=== PATIENT | male | born 1950 | race African-American/Black ===

== ENCOUNTER 2018-08-29 11:03 | Emergency (ER) | payer MEDICARE, MEDICAID, SELFPAY ==
--- NOTE | 2018-08-29 | DI.RAD.S_ITS ---
PROCEDURE: XR THORACIC SPINE 2V INDICATIONS: BACK PAIN TECHNIQUE: 3 views of the thoracic spine were acquired. COMPARISON: None. FINDINGS: Bones: No fractures or dislocations. No suspicious bony lesions. Partially visualized lower thoracolumbar spinal instrumentation. Diffuse endplate discogenic spurring and sclerosis. Cervical disc degeneration and facet arthropathy also noted. There is lateral curvature of the spine. Soft tissues: No paravertebral stripe thickening. IMPRESSION: No fracture. Extensive thoracolumbar spinal instrumentation and diffuse degenerative disc disease, most advanced at the adjacent unfused segment. Dictated by: Bry Wilcox M.D. on 08/29/2018 at 15:05 Approved by: Bry Wilcox M.D. on 08/29/2018 at 15:07
[2018-08-29 11:09] VITALS: BP 151/84; PULSE 82; RESP 18; TEMP 37.1; O2SAT 98; BMI 28.7
--- NOTE | 2018-08-29 12:42 | PC.NURSE ---
Pt has extensive back pain and surgical history. States he has had 3 back surgeries, with most recent being approx 2 years ago in his lumbosacral spine. He reports a new, radiating pain that starts in the mid to low right sided back and then radiating pain in the right buttocks down to the right leg. The leg is painful to touch. He states he can walk, but it can be painful. Nothing makes the pain better or worse, but he notices it more when he lays down. At times his leg feels like it will give out. He also notes a tender lump in his mid back to the right side of his spine. When the lump is palpated, he feels the shooting pain down his right leg. There is a well-healed surgical scar down the lumbar and sacral spine.
--- NOTE | 2018-08-29 13:31 | DI.RAD.S_ITS ---
PROCEDURE: XR LUMBAR SPINE 2-3V INDICATIONS: back pain, history multiple back surg TECHNIQUE: 2 views of the lumbar spine were acquired. COMPARISON: None. FINDINGS: Bones: Extensive posterior spinal instrumentation from [id number]. Orphaned screw fragment projects in the left ilium otherwise the hardware appears intact no evidence of hardware loosening. Residual grade 1 anterolisthesis of L4 on L5. No acute fracture seen. Decreased study sensitivity due to degenerative changes. Soft tissues: Overlying bowel gas pattern is normal. No suspicious soft tissue calcifications. IMPRESSION: No acute fracture identified. Extensive posterior spinal instrumentation as above. Dictated by: Bry Wilcox M.D. on 08/29/2018 at 15:00 Approved by: Bry Wilcox M.D. on 08/29/2018 at 15:03
--- NOTE | 2018-08-29 13:48 | ED.BACK ---
HPI - Back Pain/Injury <RAVINDRA Iverson - Last Filed: 08/29/18 18:53> General Chief Complaint: Back Pain/Injury Stated Complaint: Back Pain/ had 3 prior surgeries Time Seen by Provider: 08/29/18 13:15 Source: patient and family Mode of arrival: ambulatory Limitations: no limitations History of Present Illness HPI Narrative: patient is a 68-year-old male who presents with chief complaint of back pain. He states he has had 3 prior back surgeries in a titanium rods in his spine. He states that his back has been hurting for a few days the pain radiates down his right leg. He denies any numbness, tingling, weakness, incontinence of bowel or bladder. He is not exactly sure what kind of surgeries he has had. Denies any urinary symptoms including dysuria urgency or frequency. Patient and his state he has had swelling on the right aspect of the top of his surgical incision. he denies any specific trauma. Related Data Previous Rx's Medication Instructions Recorded cyclobenzaprine 10 mg PO TID PRN #30 tab 08/29/18 naproxen 500 mg PO BID PRN #30 tab 08/29/18 Allergies Allergy/AdvReac Type Severity Reaction Status Date / Time No Known Drug Allergies Allergy Verified 08/29/18 11:09 Review of Systems <RAVINDRA Iverson - Last Filed: 08/29/18 18:53> Review of Systems GENERAL: Denies chills, fatigue, malaise, fever, sweats. HEENT: Denies sinus pain, ear pain, sore throat, difficulty swallowing, dizziness. RESPIRATORY: Denies dyspnea, cough, wheezing, hemoptysis, sputum. CARDIOVASCULAR: Denies chest pain, palpitations, orthopnea, edema, GASTROINTESTINAL: Denies nausea, vomiting, abdominal pain, diarrhea, constipation, melena. : Denies dysuria, frequency, incontinence, hematuria, urinary retention. MUSCULOSKELETAL: See HPI SKIN: Denies rash, skin lesions, or other NEUROLOGIC: Denies weakness, headache, numbness, change in speech, confusion, seizures, incoordination. PSYCHIATRIC: No concerning psychosocial issues. 12 point review of systems is negative except for those stated above Exam <RAVINDRA Iverson - Last Filed: 08/29/18 18:53> Narrative Exam Narrative: GENERAL: This is a well-nourished, well-developed patient, Appears uncomfortable HEAD: Atraumatic. Normocephalic. No temporal or scalp tenderness. EYES: Pupils equal round and reactive. Extraocular motions intact. No scleral icterus. No injection or drainage. ENT: Nose without bleeding, purulent drainage or septal hematoma. Throat without erythema, tonsillar hypertrophy or exudate. Uvula midline. Airway patent. NECK: Trachea midline. No JVD or lymphadenopathy. Supple, nontender, no meningeal signs. CARDIOVASCULAR: Regular rate and rhythm without murmurs, gallops, or rubs. RESPIRATORY: Clear to auscultation. Breath sounds equal bilaterally. No wheezes, rales, or rhonchi. GASTROINTESTINAL: Abdomen soft, non-tender, nondistended. No hepato-splenomegaly, or palpable masses. No guarding. EXTREMITIES: No clubbing, cyanosis, or edema. No joint tenderness, effusion, or edema noted. Strength is equal upper and lower extremities bilaterally. BACK: No pain to C-spine palpation. Tenderness over T and L-spine surgical Scar. Pain on palpation of right and left paraspinal muscles. NEURO: AOx3. No slurred speech. Radial and Achilles reflexes intact bilaterally. SKIN: No rash or erythema. Surgical scar noted on back.No rash erythema ecchymosis or wound noted on back. Initial Vital Signs Initial Vital Signs: Vital Signs Temperature 98.7 F 08/29/18 11:09 Pulse Rate 82 08/29/18 11:09 Respiratory Rate 18 08/29/18 11:09 Blood Pressure 151/84 H 08/29/18 11:09 Pulse Oximetry 98 08/29/18 11:09 <Catalina Lowry DO - Last Filed: 08/29/18 19:10> Initial Vital Signs Initial Vital Signs: Vital Signs Temperature 98.7 F 08/29/18 11:09 Pulse Rate 82 08/29/18 11:09 Respiratory Rate 18 08/29/18 11:09 Blood Pressure 151/84 H 08/29/18 11:09 Pulse Oximetry 98 08/29/18 11:09 Course <CHRISTAL Iverson-BC - Last Filed: 08/29/18 18:53> Course Narrative: I checked on the patient several times his stay in the emergency department. The patient stated that his pain was much relieved by the Toradol and Flexeril emergency department. Orders Ordered: ED Orders 08/29/18 13:31 XR lumbar spine 2-3V Stat Discontinued Medications Cyclobenzaprine HCl (Flexeril) 10 mg PO NOW ONE Stop: 08/29/18 13:32 Last Admin: 08/29/18 13:53 Dose: 10 mg Ketorolac Tromethamine (Toradol) 60 mg IM NOW ONE Stop: 08/29/18 13:32 Last Admin: 08/29/18 13:53 Dose: 60 mg Vital Signs - 8 hr 08/29/18 15:40 Pulse Rate 63 Respiratory Rate 18 Blood Pressure 142/84 H Pulse Oximetry 98 <Catalina Lowry DO - Last Filed: 08/29/18 19:10> Orders Ordered: ED Orders 08/29/18 13:31 XR lumbar spine 2-3V Stat Discontinued Medications Cyclobenzaprine HCl (Flexeril) 10 mg PO NOW ONE Stop: 08/29/18 13:32 Last Admin: 08/29/18 13:53 Dose: 10 mg Ketorolac Tromethamine (Toradol) 60 mg IM NOW ONE Stop: 08/29/18 13:32 Last Admin: 08/29/18 13:53 Dose: 60 mg Vital Signs - 8 hr 08/29/18 15:40 Pulse Rate 63 Respiratory Rate 18 Blood Pressure 142/84 H Pulse Oximetry 98 MDM - Back Pain/Injury <RAVINDRA Iverson - Last Filed: 08/29/18 18:53> Imaging Data lumbar xray : Radiologist's impression: [address] [address] XRay Report Signed Patient: Ari Givens CMR#: [id number] : 2Acct:[id number] Age/Sex: 68 / MDate of Service: 08/29/18 Loc: ED Accession Number: [id number] Procedure: XR lumbar spine 2-3V Ordering Provider: Catalina Lopez PROCEDURE: XR LUMBAR SPINE 2-3V INDICATIONS: back pain, history multiple back surg TECHNIQUE: 2 views of the lumbar spine were acquired. COMPARISON: None. FINDINGS: Bones: Extensive posterior spinal instrumentation from [id number]. Orphaned screw fragment projects in the left ilium otherwise the hardware appears intact no evidence of hardware loosening. Residual grade 1 anterolisthesis of L4 on L5. No acute fracture seen. Decreased study sensitivity due to degenerative changes. Soft tissues: Overlying bowel gas pattern is normal. No suspicious soft tissue calcifications. IMPRESSION: No acute fracture identified. Extensive posterior spinal instrumentation as above. Dictated by: Bry Wilcox M.D. on 08/29/2018 at 15:00 Approved by: Bry Wilcox M.D. on 08/29/2018 at 15:03 t spine xray : Radiologist's impression: [place] [address] XRay Report Signed Patient: Ari Givens CMR#: [id number] : 1950cct:[id number] Age/Sex: 68 / MDate of Service: 08/29/18 Loc: ED Accession Number: [id number] Procedure: XR thoracic spine 2V Ordering Provider: Catalina Lopez-GABRIELLE PROCEDURE: XR THORACIC SPINE 2V INDICATIONS: BACK PAIN TECHNIQUE: 3 views of the thoracic spine were acquired. COMPARISON: None. FINDINGS: Bones: No fractures or dislocations. No suspicious bony lesions. Partially visualized lower thoracolumbar spinal instrumentation. Diffuse endplate discogenic spurring and sclerosis. Cervical disc degeneration and facet arthropathy also noted. There is lateral curvature of the spine. Soft tissues: No paravertebral stripe thickening. IMPRESSION: No fracture. Extensive thoracolumbar spinal instrumentation and diffuse degenerative disc disease, most advanced at the adjacent unfused segment. Dictated by: Bry Wilcox M.D. on 08/29/2018 at 15:05 Approved by: Bry Wilcox M.D. on 08/29/2018 at 15:07 [facility] Narrative Medical decision making narrative: Patient presents with chief complaint of musculoskeletal back pain. Images were obtained given his history, but did reveal no acute findings. Patient had good relief from Toradol and Flexeril the emergency department, so I gave him prescriptions of both. Discussed at length return precautions of numbness, incontinence of bowel, incontinence of bladder. patient and had no questions or concerns upon discharge. Discharge Plan Departure Patient Disposition: Home Clinical Impression: Back pain Discharge Date/Time: 08/29/18 15:41 Interventions: ED Discharge Assessment Last Done: 08/29/18 15:40 Instructions: DI for Back Spasm, DI for Thoracic Back Pain Activity Restrictions/Additional Instructions: I am giving you a prescription for Flexeril which is a muscle relaxer. Be aware this can be sedating. Do not combine with other sedating agents or alcohol. You can take this 3 times a day as needed. I have also given you a prescription for naproxen to take twice a day. Please do not combine this with any other NSAIDs. I have given you a list of PCPs accepting new patients In the area. Feel free to give them a call or call your insurance to find a primary care provider in the area. I have given you a list of a few orthopedic and spine people in the area. Prescriptions: New naproxen 500 mg tablet 500 mg PO BID PRN (Reason: pain) Qty: 30 RF: 0 cyclobenzaprine 10 mg tablet 10 mg PO TID PRN (Reason: muscle spasm) Qty: 30 RF: 0 Referrals: [facility] [Outside] [facility] [Outside] [facility] [Outside] <Catalina Lowry DO - Last Filed: 08/29/18 19:10> Cosign ED Attending Cosignature Attestation: I was immediately available in the department for consultation. This documentation has been reviewed and I agree with assessment and plan. Supervised by Catalina Lowry DO
[2018-08-29] MEDS: KETOROLAC 60 MG/2 ML VIAL IM (13:53)
[2018-08-29] MEDS: CYCLOBENZAPRINE 10 MG TABLET PO (13:53)
[2018-08-29 15:40] VITALS: BP 142/84; PULSE 63; RESP 18; O2SAT 98
== END 2018-08-29 15:41 | disposition home or self-care (01) ==
PROVIDERS: Emergency Provider Nurse Practitioner Family
DX: M54.9 Dorsalgia, unspecified (principal)
CPT/HCPCS: 72070; 72100; 96372; 99282; 99283; J1885

== ENCOUNTER → 2018-09-20 14:48 | Outpatient (CLI) | payer MEDICARE, MEDICAID, SELFPAY ==
--- NOTE | 2018-09-20 14:50 | DI.RAD.S_ITS ---
PROCEDURE: XR CHEST 2V INDICATIONS: expiratory rales on right side TECHNIQUE: 2 views of the chest were acquired. COMPARISON: None. FINDINGS: Surgical changes and devices: Lower thoracic and lumbar spine fusion. Surgical anchors are noted in the right humeral head. Lungs and pleura: No pleural effusions or pneumothorax. Lungs are clear. Mediastinum: Mediastinal contours are normal. Heart size is normal. Bones and chest wall: No suspicious bony abnormalities. Soft tissues appear unremarkable. IMPRESSION: No acute cardiopulmonary disease. Dictated by: Jose Salgado M.D. on 09/20/2018 at 16:25 Approved by: Jose Salgado M.D. on 09/20/2018 at 16:25
== END ==
PROVIDERS: Visit Provider Physician Assistant
DX: R05 Cough (principal); R09.89 Other specified symptoms and signs involving the circulatory and respiratory systems
CPT/HCPCS: 71046

== ENCOUNTER → 2018-12-24 07:50 | Outpatient (CLI) | payer MEDICARE, MEDICAID, SELFPAY ==
--- NOTE | 2018-12-24 | DI.MRI.S_ITS ---
PROCEDURE: MR KNEE RT WO CON INDICATIONS: RIGHT KNEE PAIN TECHNIQUE: Todd[employer]Nephew Visionaire protocol was performed. Noncontrast sagittal PD fast spin echo and T2 fast spin echo with fat saturation, sagittal 3-D FLASH with fat saturation; coronal T1 spin echo and PD fast spin echo with fat saturation, and axial PD fast spin echo with fat saturation through the knee. COMPARISON: None. FINDINGS: Image quality: Excellent. Menisci: Medial meniscal posterior horn tear involving the body, poorly defined. There is partial extrusion. There may be some displaced meniscal fragment seen in the medial gutter although this could be correlated with arthroscopic findings as clinically necessary. Undersurface tear involving the body of the lateral meniscus, with minimal partial extrusion, for example image 19 series 10 Cruciate ligaments: The anterior cruciate ligament is not well visualized and there is heterogeneous intrasubstance signal which could reflect age indeterminate high-grade partial rupture versus advanced mucoid degeneration. There is also similar signal changes involving the PCL. Intraosseous ganglion cyst formation at the roof of the intercondylar notch and tibial eminence suggests mucoid degeneration Medial structures: The medial collateral ligament appears thickened suggesting low-grade sprain although technically age indeterminate. Mild insertional semimembranosus tendinopathy. Visualized portions of the pes anserinus tendons appear normal. No abnormal bursal fluid. Lateral structures: The lateral collateral ligament is thickened with intrasubstance signal change in keeping with age indeterminate sprain. The long and short heads of the biceps femoris tendon appear intact. The popliteus tendon appears normal; the popliteofibular ligament appears intact. The posterosuperior and anteroinferior popliteomeniscal fascicles appear intact. The arcuate and fabellofibular ligaments appear intact, on either side of the lateral inferior geniculate artery. Iliotibial band appears normal. Anterior structures: The quadriceps and patellar tendons appear intact. Patellar alignment is normal. No femoral trochlear dysplasia or ventral trochlear prominence. No edema in the infrapatellar fat pad. Bones and cartilage: No focal marrow contusion or discrete low signal fracture line. Within the medial compartment, diffuse partial thickness loss of the femoral and tibial articular cartilage. Within the lateral compartment, near full-thickness fissuring of the central weightbearing femoral articular cartilage. Within the patellofemoral compartment, diffuse partial thickness loss of the patellar articular cartilage with areas of full-thickness denudation overlying the lateral patellar facet and median patellar ridge. There is partial-thickness articular cartilage loss involving the real aspect of femoral trochlea Joint space: Small Boles's cyst measuring 2 - 3 cm in a cephalocaudad dimension. No definite intra-articular loose bodies identified. Large joint effusion IMPRESSION: Medial meniscal tear involving the posterior horn and body with partial extrusion as discussed above. Lateral meniscal undersurface tear involving the body. Prominent signal changes involving the ACL and PCL, suggestive of advanced mucoid degeneration although age indeterminate partial rupture cannot be excluded. Please correlate clinically to exam findings. Low-grade chronic appearing sprain of the medial collateral ligament. Age indeterminate sprain of the proximal lateral collateral ligament. Tricompartment degeneration as above. Small Boles's cyst. Large joint effusion Dictated by: Bry Wilcox M.D. on 12/24/2018 at 9:22 Approved by: Bry Wilcox M.D. on 12/24/2018 at 9:36
== END ==
PROVIDERS: PCP Family Medicine; Visit Provider Orthopaedic Surgery
DX: M25.561 Pain in right knee (principal); S83.241A Other tear of medial meniscus, current injury, right knee, initial encounter; S83.281A Other tear of lateral meniscus, current injury, right knee, initial encounter; S83.421A Sprain of lateral collateral ligament of right knee, initial encounter; M17.11 Unilateral primary osteoarthritis, right knee; M71.21 Synovial cyst of popliteal space [Baker], right knee; M25.461 Effusion, right knee
CPT/HCPCS: 73721

== ENCOUNTER → 2019-01-20 13:45 | Outpatient (CLI) | payer MEDICARE, MEDICAID, SELFPAY ==
[2019-01-20 14:51] LABS: Hematocrit 46.2 % (41-53); Hemoglobin 15.4 g/dL (13.5-17.5); Mean Corpuscular HGB Conc 33.3 % (30-36); Mean Corpuscular Volume 102.2 fL (80-100); Platelet Count 192 X10^3/uL (150-400); Red Blood Cell Count 4.53 X10^6/uL (4.5-5.9); Red Cell Distribution Width 13.4 % (11.6-14.8); White Blood Cell Count 8.1 X10^3/uL (4.5-11.0)
[2019-01-20 15:13] LABS: Neutrophils Absolute Manual 3078 /uL (3000-5900); Total Cells Counted 100
[2019-01-20 15:22] LABS: Macrocytosis 2+
[2019-01-20 15:37] LABS: Alanine Aminotransferase 67 IU/L (21-72); Albumin 4.5 g/dL (3.5-5.0); Albumin Globulin Ratio 1.5 (1.0-2.8); Alkaline Phosphatase 100 U/L (38-126); Aspartate Aminotransferase 42 IU/L (17-59); BUN Creatinine Ratio 14.5 (6-22); Bilirubin Total 0.5 mg/dL (0.2-1.3); Blood Urea Nitrogen 16 mg/dL (9-20); Calcium 8.9 mg/dL (8.4-10.2); Carbon Dioxide 28 mmol/L (22-32); Chloride 98 mmol/L (98-107); Cholesterol 193 mg/dL (140-199); Estimated Glomerular Filt Rate > 60.0 mL/min (>60); Glucose 128 mg/dL (80-110); HDL Cholesterol 70 mg/dL (40-60); HEMOLYSIS < 15 (0-50); LDL Cholesterol Calculated 93 mg/dL (<100); Potassium 4.3 mmol/L (3.4-5.1); Sodium 139 mmol/L (137-145); Total Protein 7.5 g/dL (6.3-8.2); Triglycerides 150 mg/dL (35-150)
[2019-01-20 16:09] LABS: Thyroid Stimulating Hormone 1.61 uIU/mL (0.47-4.68)
[2019-01-20 16:17] LABS: Appearance Urine UA CLEAR; Bilirubin Urine UA NEGATIVE (NEGATIVE); Color Urine UA YELLOW; Glucose Urine UA TRACE g/dL (Negative); Ketones Urine UA NEGATIVE (NEGATIVE); Leukocyte Esterase Urine UA NEGATIVE (NEGATIVE); Nitrite Urine UA NEGATIVE (Negative); Occult Blood Urine UA NEGATIVE (Negative); Protein Urine UA NEGATIVE (Negative); Specific Gravity Urine UA 1.015 (1.000-1.035); Urobilinogen Urine UA 0.2 E.U./dL (0.2)
== END ==
PROVIDERS: PCP Family Medicine; Visit Provider Family Medicine
DX: I10 Essential (primary) hypertension (principal); N40.0 Benign prostatic hyperplasia without lower urinary tract symptoms; M17.0 Bilateral primary osteoarthritis of knee; Z51.81 Encounter for therapeutic drug level monitoring; Z13.220 Encounter for screening for lipoid disorders; Z13.29 Encounter for screening for other suspected endocrine disorder
CPT/HCPCS: 36415; 80053; 80061; 81003; 84443; 85025; G0103

== ENCOUNTER → 2019-01-27 15:35 | Outpatient (CLI) | payer MEDICARE, MEDICAID, SELFPAY | PROVIDERS: PCP Family Medicine; Visit Provider Orthopaedic Surgery | DX: Z01.818 Encounter for other preprocedural examination (principal) | CPT/HCPCS: 93005 ==

== ENCOUNTER 2019-03-17 12:27 | Inpatient (IN) | payer MEDICARE, MEDICAID, SELFPAY ==
[2019-01-26 13:41] VITALS: BMI 30.8
[2019-03-16] VITALS (14 sets, daily range): BP systolic 102–164; BP diastolic 75–103; PULSE 73–88; RESP 10–20; TEMP 36.5–37.2; O2SAT 92–100; BMI 31.3
--- NOTE | 2019-03-16 06:00 | DI.RAD.S_ITS ---
PROCEDURE: XR KNEE RT 1TO2V INDICATIONS: post-operative total right knee TECHNIQUE: 2 view(s) of the knee acquired. COMPARISON: None. FINDINGS: Bones: Patient is status post knee joint arthroplasty. Hardware components are in expected positions. Visualized bony structures are intact. Soft tissues: Overlying postoperative changes are noted. IMPRESSION: Expected postoperative appearance Dictated by: Bry Wilcox M.D. on 03/16/2019 at 17:33 Approved by: Bry Wilcox M.D. on 03/16/2019 at 17:33
[2019-03-16] MEDS: ACETAMINOPHEN 325 MG TABLET 975 MG PO ×3 (11:23→22:07)
[2019-03-16] MEDS: CELECOXIB 200 MG CAPSULE PO (11:24)
[2019-03-16] MEDS: PREGABALIN 75 MG CAPSULE PO (11:24)
[2019-03-16] MEDS: LACTATED RINGERS 1,000 ML 42 ML IV (12:00)
--- NOTE | 2019-03-16 14:08 | PM.PREOP ---
Pre-operative Note Interval Note History & Physical reviewed/Exam performed by Physician: Yes Changes to H&P: No
--- NOTE | 2019-03-16 14:08 | PM.OP.1 ---
Operative Date/Time/Diagnoses Date of procedure: 03/16/19 Time of procedure: 16:48 Pre-op diagnosis: Right knee osteoarthritis Post-op diagnosis: same Procedure & Clinicians Procedure: Right total knee arthroplasty Same procedure as scheduled: Yes Indications: The patient presents today for total knee arthroplasty after failure of conservative treatment. The nature of the procedure including the risks and benefits, alternatives, postoperative course and expected outcome were discussed and all questions answered. Consent was obtained. Operative site confirmed and marked. Surgeon: Edi Leo Data Governance Consultant: Rakesh Mai Anesthesia Type: General, Spinal and Local Operative Notes Findings: Once all the cuts were made the knee had slight looseness laterally in extension and moderate looseness medially in flexion. The femoral guide appeared to be lined up perfectly with Whitesides line for the cut. The tibia was checked and was perpendicular to the shaft. The knee was otherwise well balanced with excellent patellar tracking. The knee moved smoothly through range of motion from 0-135 degrees. Closure Type: primary Specimen(s): none sent Prosthetic devices, grafts, tissues, transplants, or devices: Todd and Nephew Khanh BCS: 5 femoral component, 6 tibial component, 9 mm BCS polyethylene tray and 35 x 9 mm round patella Applied: implant(s) Blood products transfused: none Tourniquet time (min): 30 Procedure in detail: The patient was taken to the operative suite and placed under general and spinal anesthesia. The patient was given prophylactic antibiotics prior to surgery. The patient was also given tranexamic acid, 1 g, just prior to surgery for postoperative hemostasis. The lateral knee was prepped and the joint injected with 20 mL of 1% Lidocaine with epinephrine. The knee was then prepped and draped in usual sterile fashion. The leg was exsanguinated with an Esmarch dressing and the tourniquet raised to 250 torr. A 15 cm anterior incision was made. Next a medial trivector arthrotomy was made. The extensor mechanism was marked to ensure accurate repair. Initial exposing dissection was carried out medially and laterally. The knee was then extended and the patellar thickness was measured and a cut made removing approximately 9 mm of bone with a goal of restoring normal patellar thickness. The patella was then sized and drilled. Some excess lateral bone was excised and the patellofemoral ligament released. The tourniquet was then released. The knee was then flexed and the Todd [employer] Nephew Visionaire femoral guide was placed. The anterior pins were placed and the distal rotation holes drilled. The distal cutting guide was placed and the templated distal femoral cut was made. The templating cutting block was then placed and the anterior, posterior and chamfer cuts made. The [employer] Visionaire tibial guide was placed and the alignment checked along the axis of the proximal tibial with a richie. The proximal tibial cut was then made with an oscillating saw. All meniscus and bony debris was then removed. Flexion extension gaps were checked. As noted in the findings above the knee was slightly loose laterally in extension and moderately loose medially in flexion. All cuts appeared appropriate. The knee otherwise appeared well balanced and I did not feel this could be corrected with soft tissue releases. The soft tissues were then injected with a combination of 20 mL of half percent Marcaine with epinephrine and 20 mL of Exparel. The trial components were then placed. The knee went into full extension and flexion beyond 120?. There was acceptable medial- lateral balance throughout motion as noted above. Patellar tracking was excellent. The trial components were removed and size is confirmed for the final implants. The knee was then exsanguinated with an Esmarch dressing and the tourniquet reapplied for cementing. The knee was cleansed with Pulsavac irrigation and dried. The final components were cemented in with high viscosity vacuum mixed bone cement with antibiotics. The knee was held in extension and the patellar clamp until the cement had adequately cured. The knee was then irrigated with dilute Betadine solution. The extensor mechanism was closed with 5 interrupted #1 Vicryl sutures in 90 degrees of flexion. The joint was then injected with a combination of 1 g of tranexamic acid and 20 mL of quarter percent Marcaine with epinephrine. The subcutaneous tissue was closed with 2-0 Vicryl. The skin was closed with seth and surgical adhesive. An Aquacel dressing and Wolfgang wrap were then applied. Complications: none Condition: stable Disposition: PACU Plan for aftercare: [facility] protocol for total knee arthroplasty.
[2019-03-16] MEDS: CEFAZOLIN 2 GM/100 ML FROZ.PIGGY IV (15:07)
--- NOTE | 2019-03-16 15:40 | SUR.OPER ---
Supine on padded OR bed. Pillow under head, arms secured on padded armboards <90 degree abduction. Safety belt across torso. Non-operative leg secured with tape over blanket over lower leg. Operative leg secured in DeMayo/Eric positioner. Foam padded brace at thigh of operative leg.
[2019-03-16] MEDS: TRANEXAMIC ACID 1,000 MG VIAL 1000 MG INJ (15:46)
[2019-03-16] MEDS: BUPIVACAINE 0.25% W/ EPI 30 ML VIAL 60 ML INJ (15:46)
[2019-03-16] MEDS: BUPIVACAINE LIPOSOME 266 MG/20 ML VIAL INJ (15:47)
[2019-03-16] MEDS: LIDOCAINE 1% W/EPI INJ 20 ML INJ (15:47)
[2019-03-16] MEDS: SODIUM CHLORIDE 0.9% 100 ML INJ (15:48)
[2019-03-16] MEDS: POVIDONE-IODINE 15 ML, SODIUM CHLORIDE 0.9% 250 ML TOP (15:49)
[2019-03-16] MEDS: HYDROMORPHONE 2 MG INJ 1 MG IM ×4 (17:08→17:53)
[2019-03-16] MEDS: hydrOXYzine 50 MG/ML INJ 25 MG IM (17:11)
[2019-03-16] MEDS: LORazepam 2 MG/ML INJ 0.5 MG IV (17:18)
--- NOTE | 2019-03-16 17:29 | SUR.PHASEI ---
Assumed care. VS stable. Pt reporting 10/10 pain in Rt knee
[2019-03-16] MEDS: OXYCODONE IR 5 MG TABLET 15 MG PO (17:42)
--- NOTE | 2019-03-16 17:45 | SUR.PHASEI ---
Pt reported dull sensation to RLE, Normal sensation to LLE.
--- NOTE | 2019-03-16 18:12 | SUR.PHASEI ---
Report called to Cheryl
--- NOTE | 2019-03-16 18:34 | SUR.PHASEI ---
Pt transferred to the floor with black bag and belongings bag. IV saline locked. VS stable. Drsg CDI. Pt able to wiggle toes. Report to Page.
[2019-03-16] MEDS: LACTATED RINGERS 1,000 ML 125 ML IV (18:58)
[2019-03-16] MEDS: OXYCODONE IR 10 MG TABLET PO (20:10)
[2019-03-16] MEDS: HYDROMORPHONE 2 MG TABLET PO ×2 (20:11→23:00)
[2019-03-16] MEDS: ATORVASTATIN 20 MG TABLET PO (20:12)
[2019-03-16] MEDS: ASPIRIN EC 81 MG TABLET PO (20:12)
[2019-03-17] VITALS (7 sets, daily range): BP systolic 136–151; BP diastolic 63–95; PULSE 81–93; RESP 16–18; TEMP 36.5–37.2; O2SAT 93–99
[2019-03-17] MEDS: CEFAZOLIN 2 GM/100 ML FROZ.PIGGY IV ×2 (00:05→06:24)
[2019-03-17] MEDS: HYDROMORPHONE 0.5 MG INJ IV ×3 (00:06→06:24)
--- NOTE | 2019-03-17 00:42 | PC.NURSE ---
Addendum entered by Cheryl Bowles R.N. 03/17/19 00:57: Dr. Guerrero left telemetry order on for this pt. This junior copywriter did not have a chance to call Dr. Avitia to get tele DC'd. Handed off this task to oncoming nurse. Original Note: 1829- Pt arrived to room 212 from PACU via bed. A/O x4, , Maggy with pt. 100%RA, LS clear denies SOB. Right knee aquacell/maria elena wrap CDI, PP+, CMS+, wiggle toes and ankle pumps ++. Pt requesting something to eat, went to cafeteria, brought up dinner, pt tolerated well. Pt reports pain 9-10/10, and reports baseline pain 7/10 at home from chronic pain to back and knee. Pt requested trazadone 100mg for sleep, called Dr. Avitia, answered NO for that order. Using urinal in bed. Pt declines to wear calf SCD's. Bed alarm on, rooming in, call light in reach.
[2019-03-17] MEDS: hydrOXYzine pamoate 25 MG CAPSULE PO ×2 (01:07→12:19)
[2019-03-17] MEDS: LACTATED RINGERS 1,000 ML 125 ML IV (02:15)
[2019-03-17] MEDS: HYDROMORPHONE 2 MG TABLET PO ×2 (02:15→05:28)
[2019-03-17 06:16] LABS: Hematocrit 40.2 % (41-53); Hemoglobin 13.7 g/dL (13.5-17.5)
--- NOTE | 2019-03-17 08:02 | PM.PNPO.1 ---
Subjective Date Patient Seen: 03/17/19 Time Patient Seen: 08:02 Interval history: The patient is seen bedside postop day #1 status post right total knee arthroplasty by Dr. Leo. Patient has been having significant pain overnight. He normally takes MS Contin 30 mg daily with 20 mg of oxycodone 3 times a day. This is standard maintenance dose for his chronic pain. His pain currently is 10/10. He is also having significant back pain. He denies chest pain shortness of breath nausea vomiting and calf pain. Exam Vital Signs (past 8 hours): - 03/17/19 06:01 03/17/19 09:00 03/17/19 09:10 Temperature 97.9 F 97.7 F Pulse Rate 89 81 Respiratory Rate 16 16 Blood Pressure 136/81 151/95 H 136/81 Pulse Oximetry 93 99 03/17/19 09:11 Temperature Pulse Rate Respiratory Rate Blood Pressure 136/81 Pulse Oximetry Oxygen Delivery Method Room Air Oxygen Flow Rate 0 Narrative Exam Narrative: Well-developed, well-nourished, no acute distress. Alert and oriented to person, place, and time. Dressing on operative knee is clean, dry, and intact with no signs of drainage. Minimal erythema and generalized swelling around the surgical site. Neurovascularly intact in operative extremity with a soft and compressible calf. Range of motion of the operative ankle intact. Objective Labs Result Diagrams: 03/17/19 05:30 Labs: Laboratory Results - last 24 hr 03/17/19 05:30 Hgb 13.7 Hct 40.2 L Assessment & Plan Post-op Postoperative Procedures Operation Date: 02/09/19 07:45 <No data on this case meets the specified criteria> Operation Date: 03/16/19 13:00 Actual Procedures Side Surgeon p Total Knee Arthroplasty Right Edi Leo MD 1. Postop day 1 status post above procedure-ambulate with physical therapy, aspirin for DVT prophylaxis. 2. Chronic pain-patient will be placed on his scheduled maintenance chronic pain medications. In addition, he will need breakthrough pain medication to treat his acute surgical pain. So his Dilaudid doses will be in addition to his scheduled pain medications. Dispo-based on how well he ambulates as well as pain control. He may take a few days to become well controlled on a pain regiment. Quality VTE Deep Vein Thrombosis/Pulmonary Embolism Present on Admission: No
[2019-03-17] MEDS: ACETAMINOPHEN 325 MG TABLET 975 MG PO ×3 (09:09→20:48)
[2019-03-17] MEDS: OXYCODONE IR 10 MG TABLET 20 MG PO ×2 (09:09→14:50)
[2019-03-17] MEDS: MORPHINE ER 30 MG TABLET PO (09:10)
[2019-03-17] MEDS: ASPIRIN EC 81 MG TABLET PO ×2 (09:10→20:48)
[2019-03-17] MEDS: MELOXICAM 7.5 MG TABLET 15 MG PO (09:10)
[2019-03-17] MEDS: DOXAZOSIN 4 MG TABLET 8 MG PO (09:10)
[2019-03-17] MEDS: METOPROLOL ER 50 MG TABLET 100 MG PO (09:11)
[2019-03-17] MEDS: AMLODIPINE 5 MG TABLET PO (09:11)
[2019-03-17] MEDS: FINASTERIDE 5 MG TABLET PO (09:11)
[2019-03-17] MEDS: HYDROMORPHONE 2 MG TABLET 4 MG PO ×5 (09:16→20:47)
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
--- NOTE | 2019-03-17 14:34 | PC.NURSE ---
Ari Givens is a 68 year old mail with a Hx of chronic pain and prescribed intermediate frame tender narcotic use. Ari is day 2 post-op from a total Right Knee arthoroplasty. Patient states that his pain is not being well controlled and he is getting no sleep. Ari expressed that he thought this hospital visit would allow him to have a break from his pain via IV pain medication and is upset that he is not getting his pain under control during this stay. Alternative pain interventions were offered and implemented (new bed) but patient would only allow movement after a pain medication administration had occurred recently. New pain medication regime was ordered by and implemented. Will continue to monitor.
--- NOTE | 2019-03-17 14:35 | PT.IPTN ---
Current Diagnoses Unilateral primary osteoarthritis, right knee (03/16/19) Surgery Performed Operation Date: 02/09/19 07:45 <No data on this case meets the specified criteria> Operation Date: 03/16/19 13:00 Actual Procedures p Total Knee Arthroplasty(Right) - Edi Leo MD Physical Therapy Treatment Note M2 PT-IP Current Condition Start: 03/17/19 11:53 Freq: NEEDED Status: Active Protocol: Document 03/17/19 11:41 DLM (Rec: 03/17/19 12:04 DLM [id number]) Physical Therapy Current Condition Current Condition Evaluation Date 03/17/19 Treatment Diagnosis right TKA, impaired gait Onset Date 03/16/19 Weight Bearing Status Weight Bearing Status Weight Bear as Tolerated M3 PT-IP Subjective Start: 03/17/19 11:53 Freq: NEEDED Status: Active Protocol: Document 03/17/19 14:35 GGD (Rec: 03/17/19 14:54 GGD [id number]) Subjective Physical Therapy Visit Type Notes attempted to get up out of bed , when pt lift leg began to bleed. RN and BODY FORMER in room. Will see pt in AM. Outpatient PT
--- NOTE | 2019-03-17 14:36 | PC.NURSE ---
Pt attempted to get up with P.T. and Staff assistance and right knee dressing began bleeding profusely-applied direct pressure with 4x4's, applied abd pads and covered abd's with maria elena wrap to provide pressure to control bleeding. [facility] contacted and discussed Pt status with Sheryl ISABEL. Awaiting return call for who will be seeing Pt from their office and evaluating bleeding.
[2019-03-17] MEDS: hydrOXYzine pamoate 25 MG CAPSULE 50 MG PO ×2 (18:15→22:09)
--- NOTE | 2019-03-17 19:04 | PC.NURSE ---
Addendum entered by Harmony Javed R.N. 03/17/19 22:37: 4 x 4's and abd pads placed by PA remain dry and intact without any further bleeding to right knee. Wolfgang wrap loosened per pt's request. Lengthwise pillow to support RLE. Medicated as per emar without any complaints by patient. Brighter affect this evening shift. Spouse rooming in. Addendum entered by Harmony Javed R.N. 03/17/19 20:05: Pt is able to stand with assistance to transfer into recliner for bed change to [place]. Pt is content with new bed and verbalizes this. No further bleeding right knee. Wolfgang wrap as per CHALO Sanford remains dry and intact. Equally warm and perfused extremities. Refuses to wear scd's. Original Note: CHALO Sanford in to see patient early in evening shift. Discusses pain management with pt, this telegraphic typewriter mechanic and pt's spouse. Agreement reached to increase dose of vistaril and frequency and continue with every 3 hours dilaudid po. Pt verbalizes frustration over not having option of iv dilaudid. Explanation by CHALO Sanford as to moving towards discharge with po meds and ceiling has been reached with narcotic orders per PA. Dressing removed by PA to right knee and new pressure dressing applied with wolfgang wrap. Pt medicated with po dilaudid and vistaril as ordered. Pain level at time of medication 12/10 and decreases to 8/10. Pt now more patient and willing to interact with staff as to plan of care. Encouraged pt to transfer to [place] bed and allow for linen change as current linen is bloodied.
[2019-03-17] MEDS: ATORVASTATIN 20 MG TABLET PO (20:49)
[2019-03-17] MEDS: SODIUM CHLORIDE 0.9% FLUSH 10 ML IV (20:49)
[2019-03-17] MEDS: TRAZODONE 100 MG TABLET PO (22:08)
[2019-03-18] VITALS (12 sets, daily range): BP systolic 109–151; BP diastolic 61–89; PULSE 78–91; RESP 16–18; TEMP 36.6–38.3; O2SAT 93–99
[2019-03-18] MEDS: HYDROMORPHONE 2 MG TABLET 4 MG PO ×7 (00:05→23:50)
[2019-03-18] MEDS: OXYCODONE IR 10 MG TABLET 20 MG PO ×3 (01:07→17:39)
[2019-03-18] MEDS: hydrOXYzine pamoate 25 MG CAPSULE 50 MG PO ×5 (01:07→20:18)
--- NOTE | 2019-03-18 07:25 | PC.NURSE ---
03/18 Called into patient's room by Lab. Patient is feeling warm to the touch. Checked Patient's Temp with oral thermometer. Patient's Temp is 101.0. Took Patient's blankets off of him and Reported Temp to Opal Kaufman RN
[2019-03-18 07:30] LABS: Hematocrit 36.5 % (41-53); Hemoglobin 12.7 g/dL (13.5-17.5)
[2019-03-18] MEDS: MELOXICAM 7.5 MG TABLET 15 MG PO (08:20)
[2019-03-18] MEDS: ACETAMINOPHEN 325 MG TABLET 975 MG PO ×3 (08:21→20:17)
[2019-03-18] MEDS: AMLODIPINE 5 MG TABLET PO (08:21)
[2019-03-18] MEDS: DOXAZOSIN 4 MG TABLET 8 MG PO (08:21)
[2019-03-18] MEDS: ASPIRIN EC 81 MG TABLET PO ×2 (08:21→20:18)
[2019-03-18] MEDS: FINASTERIDE 5 MG TABLET PO (08:22)
[2019-03-18] MEDS: METOPROLOL ER 50 MG TABLET 100 MG PO (08:23)
[2019-03-18] MEDS: MORPHINE ER 30 MG TABLET PO (08:23)
[2019-03-18] MEDS: SODIUM CHLORIDE 0.9% FLUSH 10 ML IV (08:23)
--- NOTE | 2019-03-18 08:24 | PM.PNPO.1 ---
Subjective Date Patient Seen: 03/18/19 Interval history: Patient is seen bedside status post right TKA postop day 2. Patient had some issues with bleeding yesterday afternoon. Appears that he had a hematoma that expressed itself through the most distal aspect of his incision. Pressure dressing was applied by CHALO Carvajal yesterday and is clean dry and intact. He denies chest pain shortness of breath. He did have a mild temperature of 101? F this morning which we will monitor. However it is likely secondary to inflammation from the surgery. Pain regimen appears to be working at this time. However, he is complaining of significant muscle spasms. Exam Vital Signs (past 8 hours): - 03/18/19 02:50 03/18/19 06:30 03/18/19 07:23 Temperature 99.8 F H 99.8 F H 101.0 F H Oxygen Delivery Method Room Air Oxygen Flow Rate 0 Narrative Exam Narrative: Well-developed, well-nourished, no acute distress. Alert and oriented to person, place, and time. Pressure dressing on knee is clean dry and intact with no signs of drainage. Minimal erythema and generalized swelling around the surgical site. Neurovascularly intact in operative extremity with a soft and compressible calf. Range of motion of the operative ankle intact. Objective Labs Result Diagrams: 03/18/19 07:07 Labs: Laboratory Results - last 24 hr 03/18/19 07:07 Hgb 12.7 L Hct 36.5 L Assessment & Plan Post-op Postoperative Procedures Operation Date: 02/09/19 07:45 <No data on this case meets the specified criteria> Operation Date: 03/16/19 13:00 Actual Procedures Side Surgeon p Total Knee Arthroplasty Right Edi Leo MD 1. Postop day 2 status post above procedure--continue with current pain regimen, however will add Flexeril as needed if the Vistaril is not helping with his muscle spasms. We will keep the pressure dressing in place until tomorrow when I will change it. Patient will be up with therapy today. Continue ASA b.i.d. for VTE prophylaxis Dispo-in the next day or 2 based on pain control and movement with physical therapy. Quality VTE Deep Vein Thrombosis/Pulmonary Embolism Present on Admission: No
--- NOTE | 2019-03-18 13:25 | PT.IPTN ---
Current Diagnoses Unilateral primary osteoarthritis, right knee (03/16/19) Surgery Performed Operation Date: 02/09/19 07:45 <No data on this case meets the specified criteria> Operation Date: 03/16/19 13:00 Actual Procedures p Total Knee Arthroplasty(Right) - Edi Leo MD Physical Therapy Treatment Note M2 PT-IP Current Condition Start: 03/17/19 11:53 Freq: NEEDED Status: Active Protocol: Document 03/17/19 11:41 DLM (Rec: 03/17/19 12:04 DLM [id number]) Physical Therapy Current Condition Current Condition Evaluation Date 03/17/19 Treatment Diagnosis right TKA, impaired gait Onset Date 03/16/19 Weight Bearing Status Weight Bearing Status Weight Bear as Tolerated M3 PT-IP Subjective Start: 03/17/19 11:53 Freq: NEEDED Status: Active Protocol: Document 03/18/19 09:25 LJ (Rec: 03/18/19 13:25 LJ [id number]) Subjective Physical Therapy Visit Type Type Treatment Note Visit Start Time 09:25 Visit Stop Time 09:48 Total Visit Minutes 23 Physical Therapy Visit Comments Patient Comments Still in a lot of pain but knows he has to get up and move. Fears his pain will increase after movement. Therapy Pain Assessment Pain When Pain Assessed During Mobility Pain Present Pain Present Pain Reported Location Right Knee Pain Behaviors Facial Grimacing Guarding Moaning Wincing Pain Management Techniques Apply Cold Re-positioning M4 PT-IP Mobility and Gait Start: 03/17/19 11:53 Freq: NEEDED Status: Active Protocol: Document 03/18/19 09:25 LJ (Rec: 03/18/19 13:25 LJ [id number]) PT-Bed Mobility Assessment Supine to Sit Supine to Sit Minimal Assistance Sit to Supine Sit to Supine Minimal Assistance Scooting Scooting to Edge of Bed Minimal Assistance Scooting Up and Down in Bed Minimal Assistance PT-Transfer Assessment Sit to and From Stand Sit to and from Stand Contact Guard Assistance Use of Upper Extremities Equipment Transfer Assistive Device Gait Belt Front Wheeled Walker Transfers Transfer Destination Bed Transfer Technique Stand Step Pivot Transfer Ability Level of Assist Contact Guard Assistance Use of Upper Extremities Gait Assessment Gait Gait Assistance Required: Contact Guard Assist Distance (Feet) 15 Able to Maintain Weight Bearing Status Yes During Gait Assistive Devices Assistive Device Gait Belt Front Wheeled Walker Gait Deviations General Gait Pattern Antalgic Decreased Stride Length Decreased Feet Clearance Step-to Gait Factors Limiting Gait Function Factors Limiting Gait Function Decreased Activity Tolerance Decreased Strength Pain Comments Gait Comments pt returned to bed after gait due to fatigue and pain. Able to increase weight on involved leg. Movement is slow and guarded. Pt demonstrates proper leg positioning with sit<>stand. Needed cuing for leaning forward prior to attempting to stand. M5 PT-IP Objective Assessments Start: 03/17/19 11:53 Freq: NEEDED Status: Active Protocol: Document 03/17/19 11:41 DLM (Rec: 03/17/19 13:09 DLM [id number]) Orientation Orientation/Cognition Level of Alertness Alert Orientation Name Age Birthday Month Date Year Day of Week Place Situation Language Function Ability No Deficits Noted Safety Awareness Understands Safety Issues Memory Description No Deficits Noted Gross Range of Motion Upper Extremity ROM Assessment Within Functional Limits Lower Extremity ROM Assessment Right Impaired Impairments knee ext -lacking 20 degrees in supine, tolerating minimal knee flexion due to pain Strength Upper Extremity Strength Assessment Within Functional Limits Lower Extremity Strength Assessment Right Impaired Hip able to do low straight leg raise with increase pain Knee knee flex/ext 2+/5 with pain limiting Ankle active movement without difficulty 5/5 Coordination Assessment Gross Coordination Gross Coordination WNL Sensation Assessment Sensation Gross Sensation Right LE Impaired Left LE Impaired Sensation Description Numbness Comments Sensation Comments baseline numbness laterally bilateral hip/thighs since back surgery, maria elena wrap on knee , hypesensative to touch right knee today Muscle Tone Muscle Tone WNL Yes M6 PT-IP Treatment Start: 03/17/19 11:53 Freq: NEEDED Status: Active Protocol: Document 03/17/19 11:41 DLM (Rec: 03/17/19 13:09 DLM [id number]) Physical Therapy Treatment Exercises Exercises Ankle Pumps Quad Sets Short Arc Quads Passive Knee Extension Hang Education Education Provided Weight Bearing Status Post-Op Packet Safety Other Treatments Other Treatment Performed his is present this visit and questions answered about home equipment M7 PT-IP Assessment and Plan Start: 03/17/19 11:53 Freq: NEEDED Status: Active Protocol: Document 03/18/19 09:25 LJ (Rec: 03/18/19 13:25 LJ [id number]) PT Summary Assessment and Plan Summary Impairments Pain ROM Strength Balance Bed Mobility Transfers Gait Activity Tolerance Assessment Summary Pt ambulated to the couch and back to bed. Shows good posture and safety awareness. Able to return to bed with SBA and Aiyana for lifting RLE into bed. Pt able to reposition in bed using bridging and bed rails.
[2019-03-18] MEDS: CYCLOBENZAPRINE 10 MG TABLET PO ×2 (14:00→21:35)
--- NOTE | 2019-03-18 15:19 | PT.IPTN ---
Current Diagnoses Unilateral primary osteoarthritis, right knee (03/16/19) Surgery Performed Operation Date: 02/09/19 07:45 <No data on this case meets the specified criteria> Operation Date: 03/16/19 13:00 Actual Procedures p Total Knee Arthroplasty(Right) - Edi Leo MD Physical Therapy Treatment Note M2 PT-IP Current Condition Start: 03/17/19 11:53 Freq: NEEDED Status: Active Protocol: Document 03/17/19 11:41 DLM (Rec: 03/17/19 12:04 DLM [id number]) Physical Therapy Current Condition Current Condition Evaluation Date 03/17/19 Treatment Diagnosis right TKA, impaired gait Onset Date 03/16/19 Weight Bearing Status Weight Bearing Status Weight Bear as Tolerated M3 PT-IP Subjective Start: 03/17/19 11:53 Freq: NEEDED Status: Active Protocol: Document 03/18/19 14:45 LJ (Rec: 03/18/19 15:18 LJ [id number]) Subjective Physical Therapy Visit Type Type Treatment Note Visit Start Time 14:45 Visit Stop Time 15:01 Total Visit Minutes 16 Notes Pt willing to get up and walk around the room. Requests to have pain medication when he is finished with PT. Therapy Pain Assessment Pain When Pain Assessed During Mobility Pain Present Pain Present Pain Reported M4 PT-IP Mobility and Gait Start: 03/17/19 11:53 Freq: NEEDED Status: Active Protocol: Document 03/18/19 14:45 LJ (Rec: 03/18/19 15:18 LJ [id number]) PT-Bed Mobility Assessment Supine to Sit Supine to Sit Standby Assistance Sit to Supine Sit to Supine Minimal Assistance Scooting Scooting to Edge of Bed Standby Assistance Scooting Up and Down in Bed Standby Assistance PT-Transfer Assessment Sit to and From Stand Sit to and from Stand Contact Guard Assistance Use of Upper Extremities Equipment Transfer Assistive Device Gait Belt Front Wheeled Walker Transfers Transfer Destination Bed Transfer Technique Stand Step Pivot Transfer Ability Level of Assist Contact Guard Assistance Use of Upper Extremities Comments Mobility Comments Pt improved mobility in bed. SBA for supine>sit and swinging legs off side of bed. Verbal cuing for trunk and foot placement to set up for standing. Pt able to sit>stand CGA and VC. Gait Assessment Gait Gait Assistance Required: Contact Guard Assist Distance (Feet) 25 Assistive Devices Assistive Device Gait Belt Front Wheeled Walker Gait Deviations General Gait Pattern Antalgic Decreased Stride Length Decreased Feet Clearance Step-to Gait Factors Limiting Gait Function Factors Limiting Gait Function Decreased Activity Tolerance Decreased Strength Pain Comments Gait Comments Pt ambulated from right side of bed to couch and back to bed. Stood for several minutes while RN changed the bedding. Pt tolerated standing w/o complaint of increased pain. Returned to bed with Tiffanie for lifting and positioning leg only. All other mobility was done SBA. M5 PT-IP Objective Assessments Start: 03/17/19 11:53 Freq: NEEDED Status: Active Protocol: Document 03/17/19 11:41 DLM (Rec: 03/17/19 13:09 [facility] [id number]) Orientation Orientation/Cognition Level of Alertness Alert Orientation Name Age Birthday Month Date Year Day of Week Place Situation Language Function Ability No Deficits Noted Safety Awareness Understands Safety Issues Memory Description No Deficits Noted Gross Range of Motion Upper Extremity ROM Assessment Within Functional Limits Lower Extremity ROM Assessment Right Impaired Impairments knee ext -lacking 20 degrees in supine, tolerating minimal knee flexion due to pain Strength Upper Extremity Strength Assessment Within Functional Limits Lower Extremity Strength Assessment Right Impaired Hip able to do low straight leg raise with increase pain Knee knee flex/ext 2+/5 with pain limiting Ankle active movement without difficulty 5/5 Coordination Assessment Gross Coordination Gross Coordination WNL Sensation Assessment Sensation Gross Sensation Right LE Impaired Left LE Impaired Sensation Description Numbness Comments Sensation Comments baseline numbness laterally bilateral hip/thighs since back surgery, maria elena wrap on knee , hypesensative to touch right knee today Muscle Tone Muscle Tone WNL Yes M6 PT-IP Treatment Start: 03/17/19 11:53 Freq: NEEDED Status: Active Protocol: Document 03/17/19 11:41 DLM (Rec: 03/17/19 13:09 [facility] [id number]) Physical Therapy Treatment Exercises Exercises Ankle Pumps Quad Sets Short Arc Quads Passive Knee Extension Hang Education Education Provided Weight Bearing Status Post-Op Packet Safety Other Treatments Other Treatment Performed his is present this visit and questions answered about home equipment M7 PT-IP Assessment and Plan Start: 03/17/19 11:53 Freq: NEEDED Status: Active Protocol: Document 03/18/19 14:45 LJ (Rec: 03/18/19 15:18 LJ [id number]) PT Summary Assessment and Plan Summary Impairments Pain ROM Strength Balance Bed Mobility Transfers Gait Activity Tolerance Assessment Summary Pt able to ambulate greater distance this afternoon with less c/o pain. Gait speed increased as did standing tolerance. Increased ability to perform SBA bed and transfer mobility.
--- NOTE | 2019-03-18 16:51 | PC.NURSE ---
Addendum entered by Harmony Javed R.N. 03/18/19 22:40: Pt continues to lie quietly in bed but rates pain to right knee consistently 9/10. Flexeril to manage spasms. Informed pt bed can be utilized to turn pt side to side. Minimal bed covers as axillary temp 99.8. Held trazadone d/t sedation at this time. Addendum entered by Harmony Javed R.N. 03/18/19 21:38: Pt reports feeling chilled. Oral temp 97.9. Urine is dark kwadwo in color per urinal. Encouraged oral fluids and these were offered. Instructed pt and pt's spouse on the effect of prolonged immobility on the respiratory system. Encouraged frequent use of I.S. and pt compliant. Scd to left LE and ankle waving and calf pumping was encouraged. Pt requires continual education and reinforcement. Medicated for spasms and pain as per emar. Addendum entered by Harmony Javed R.N. 03/18/19 18:43: Now awake as evening meal is brought to pt and pt's spouse. Sleepy, but rousable and follows commands appropriately. Rates right knee pain 9/10, but has difficulty remaining awake to converse with this feature writer. Provided pt with pt's baseline oxycodone and monitoring pt for oversedation. No oversedation noted. Wakeful intermittently in bed. Ice to right knee removed at this time. Admits to baseline numbness to BL LE's and this remains per pt postoperatively. BL LE's equally warm to touch. Calf scd to left leg only and in place. Encouraged I.S. use and pt able to perform to 2500. Slight edema RLE with spotty drainage to aquacel dressing. ABD pads with maria elena wrap to distal aspect RLE dry and intact. Continue to monitor for pain relief and sedation level. Original Note: Pt resting quietly in bed with eyes closed. No signs of distress or discomfort. Allowing for rest. Spouse present in pt's room.
--- NOTE | 2019-03-18 17:03 | CM.IDA ---
Initial DCP Assessment Note: Pt is a 68 yo male, resident of [place] and POD#2 from TKA. PCP: Shannan Cruz Payer: Medicare/Medicaid. According to chart review, pt Indp. w/o AD at baseline and hopeful he can return home w/spouse to assist. Therapy team indicate pt has had a slow recovery course so far, he has complained of a lot of pain, limiting mobility. PA expects pt may remain admitted for an addtl. day or two depending on progress. PT initially recommending SNF but pt making some progress towards home plan today. Following for any DC needs or concerns that might arise. Supportive spouse often at bedside. CARLA Chowdhury Discharge Planning/Care Management CM Discharge Assessment Start: 03/18/19 17:02 Freq: Status: Active Protocol: Document 03/18/19 17:02 YANY (Rec: 03/18/19 17:03 YANY [id number]) Discharge Planning Assessment Assigned Client Business Manager CARLA Carmona DPOA/Assigned Designee Name Danielle Givens, spouse Contact Information [phone] Advance Directives? No History Provided By Patient Significant Other Medical Record Prior Living Arrangements House Household Members spouse Type of transporation used prior to Drives own vehicle admit Independent with ADL's Yes Is patient alert and oriented? Yes Barriers to Discharge No Discharge Plan Home Referrals Initiated None needed Review Status In Process
[2019-03-18] MEDS: ATORVASTATIN 20 MG TABLET PO (20:18)
[2019-03-18] MEDS: TRAZODONE 100 MG TABLET PO (23:53)
[2019-03-19] MEDS: hydrOXYzine pamoate 25 MG CAPSULE 50 MG PO ×5 (00:46→21:53)
[2019-03-19] MEDS: OXYCODONE IR 10 MG TABLET 20 MG PO ×3 (00:46→17:29)
--- NOTE | 2019-03-19 01:45 | PC.NURSE ---
Addendum entered and electronically signed by Ang Bermudez R.N. 03/19/19 06:23: Pt. is in pain 08/11. I stated to him that he asked me not to wake him up for PRN pain meds during the night and he disagreed with me. I told him that I had told him it was best to stay on top of the pain. 4mg PRN Dilaudid given at 0620. Original Note: Addendum entered and electronically signed by Ang Bermudez R.N. 03/19/19 05:51: Pt has been afebrile on this shift. Original Note: Addendum entered and electronically signed by Ang Bermudez R.N. 03/19/19 05:45: Pt asked not to be woken for PRN pain meds. None needed for the night. Original Note: Pt awake and conversing w/ . Pt. is Alert and oriented. Lung sounds are clear, VSS, no fever at this time. Goal is to stay on top of pain w/ PRN pain meds as needed and scheduled medications.
[2019-03-19 05:40] VITALS: BP 122/68; PULSE 82; RESP 18; TEMP 36.7; O2SAT 93
[2019-03-19] MEDS: HYDROMORPHONE 2 MG TABLET 4 MG PO ×5 (06:18→21:52)
[2019-03-19] MEDS: FINASTERIDE 5 MG TABLET PO (08:07)
[2019-03-19] MEDS: DOXAZOSIN 4 MG TABLET 8 MG PO (08:07)
[2019-03-19] MEDS: METOPROLOL ER 50 MG TABLET 100 MG PO (08:07)
[2019-03-19] MEDS: AMLODIPINE 5 MG TABLET PO (08:07)
[2019-03-19] MEDS: MORPHINE ER 30 MG TABLET PO (08:07)
[2019-03-19] MEDS: ASPIRIN EC 81 MG TABLET PO (08:08)
[2019-03-19] MEDS: MELOXICAM 7.5 MG TABLET 15 MG PO (08:08)
[2019-03-19] MEDS: ACETAMINOPHEN 325 MG TABLET 975 MG PO ×3 (08:09→21:53)
--- NOTE | 2019-03-19 08:12 | PM.PNPO.1 ---
Subjective Date Patient Seen: 03/19/19 Interval history: Patient is seen bedside status post right TKA postop day 3. Patient is still rates his pain is severe, however he is resting more comfortably today. Denies calf pain chest pain shortness of breath. He has not had a bowel movement. Exam Vital Signs (past 8 hours): - 03/19/19 05:40 Temperature 98.1 F Pulse Rate 82 Respiratory Rate 18 Blood Pressure 122/68 Pulse Oximetry 93 Oxygen Delivery Method Room Air Oxygen Flow Rate 0 Narrative Exam Narrative: Well-developed well-nourished no acute distress alert oriented x3. Incision on right knee is clean dry and intact and stapled. Small areas of the incision were reinforced with Steri-Strips and an Aquacel dressing was placed. Minimal swelling around the knee. Calf is soft and compressible and has full range of motion of the operative ankle. Objective Labs Result Diagrams: 03/18/19 07:07 Assessment & Plan Post-op Postoperative Procedures Operation Date: 02/09/19 07:45 <No data on this case meets the specified criteria> Operation Date: 03/16/19 13:00 Actual Procedures Side Surgeon p Total Knee Arthroplasty Right Edi Leo MD 1. Postop day 3-continue physical therapy pain control. Discussion was had with the patient regarding discharge and he expressed understanding that he will be discharged tomorrow and will be up to him whether he goes home or to a subacute rehab facility. At this point the patient preferred to go home. Follow up in the office as previously scheduled in his [facility] path book. Quality VTE Deep Vein Thrombosis/Pulmonary Embolism Present on Admission: No
[2019-03-19] MEDS: HYDROMORPHONE 2 MG TABLET PO (08:15)
[2019-03-19] MEDS: DOCUSATE 100 MG CAPSULE PO ×2 (09:26→21:53)
[2019-03-19] MEDS: SENNOSIDES 8.6 MG TABLET 17.2 MG PO (09:26)
--- NOTE | 2019-03-19 11:00 | PT.IPTN ---
Current Diagnoses Unilateral primary osteoarthritis, right knee (03/16/19) Surgery Performed Operation Date: 02/09/19 07:45 <No data on this case meets the specified criteria> Operation Date: 03/16/19 13:00 Actual Procedures p Total Knee Arthroplasty(Right) - Edi Leo MD Physical Therapy Treatment Note M2 PT-IP Current Condition Start: 03/17/19 11:53 Freq: NEEDED Status: Active Protocol: Document 03/17/19 11:41 DLM (Rec: 03/17/19 12:04 DLM [id number]) Physical Therapy Current Condition Current Condition Evaluation Date 03/17/19 Treatment Diagnosis right TKA, impaired gait Onset Date 03/16/19 Weight Bearing Status Weight Bearing Status Weight Bear as Tolerated M3 PT-IP Subjective Start: 03/17/19 11:53 Freq: NEEDED Status: Active Protocol: Document 03/19/19 11:00 [facility] (Rec: 03/19/19 12:39 [facility] [email or web address]) Subjective Physical Therapy Visit Type Type Treatment Note Visit Start Time 11:00 Visit Stop Time 11:20 Total Visit Minutes 20 Number of DISTRICT GAUGER Visits 0 Physical Therapy Visit Comments Patient Comments pt reports he is doing a little better. M4 PT-IP Mobility and Gait Start: 03/17/19 11:53 Freq: NEEDED Status: Active Protocol: Document 03/19/19 11:00 [facility] (Rec: 03/19/19 12:39 [facility] [id number]) PT-Bed Mobility Assessment Supine to Sit Supine to Sit Standby Assistance Sit to Supine Sit to Supine Standby Assistance Scooting Scooting to Edge of Bed Standby Assistance PT-Transfer Assessment Sit to and From Stand Sit to and from Stand Standby Assistance Equipment Transfer Assistive Device Gait Belt Front Wheeled Walker Transfers Transfer Destination Bed Transfer Technique Stand Step Pivot Transfer Ability Level of Assist Standby Assistance Gait Assessment Gait Gait Assistance Required: Standby Assistance Distance (Feet) 75 Assistive Devices Assistive Device Gait Belt Front Wheeled Walker Gait Deviations General Gait Pattern Antalgic Decreased Stride Length Decreased Feet Clearance Flexed Trunk Step-to Gait Factors Limiting Gait Function Factors Limiting Gait Function Decreased Activity Tolerance Decreased Strength Limited Range of Motion Pain Poor Balance M5 PT-IP Objective Assessments Start: 03/17/19 11:53 Freq: NEEDED Status: Active Protocol: Document 03/17/19 11:41 DLM (Rec: 03/17/19 13:09 DLM [id number]) Orientation Orientation/Cognition Level of Alertness Alert Orientation Name Age Birthday Month Date Year Day of Week Place Situation Language Function Ability No Deficits Noted Safety Awareness Understands Safety Issues Memory Description No Deficits Noted Gross Range of Motion Upper Extremity ROM Assessment Within Functional Limits Lower Extremity ROM Assessment Right Impaired Impairments knee ext -lacking 20 degrees in supine, tolerating minimal knee flexion due to pain Strength Upper Extremity Strength Assessment Within Functional Limits Lower Extremity Strength Assessment Right Impaired Hip able to do low straight leg raise with increase pain Knee knee flex/ext 2+/5 with pain limiting Ankle active movement without difficulty 5/5 Coordination Assessment Gross Coordination Gross Coordination WNL Sensation Assessment Sensation Gross Sensation Right LE Impaired Left LE Impaired Sensation Description Numbness Comments Sensation Comments baseline numbness laterally bilateral hip/thighs since back surgery, maria elena wrap on knee , hypesensative to touch right knee today Muscle Tone Muscle Tone WNL Yes M6 PT-IP Treatment Start: 03/17/19 11:53 Freq: NEEDED Status: Active Protocol: Document 03/19/19 11:00 [facility] (Rec: 03/19/19 12:39 [facility] [id number]) Physical Therapy Treatment Exercises Exercises Ankle Pumps Education Education Provided Safety M7 PT-IP Assessment and Plan Start: 03/17/19 11:53 Freq: NEEDED Status: Active Protocol: Document 03/19/19 11:00 [facility] (Rec: 03/19/19 12:39 [facility] [id number]) PT Summary Assessment and Plan Summary Progress Towards Goals Slow Progress due to Pain Slow Progress due to Activity Tolerance Assessment Summary POD #3 R TKA. Pt able to ambulate 75 ft with FWW and SBA. He initially was unable to achieved heel down with gait, but able to perform this with VC. Pt will need to perform stairs prior to d/c, but does appear to be improving, albeit slowly. Pt is not safe to d/c today, but may d/c when medically stable if completes stairs, likely POD 4. Goals Bed Mobility Goal Independent Transfer Goal Independent Front Wheeled Walker Gait Goal Independent Front Wheel Walker Gait Distance 100 feet Other Goals Up and down 6 steps with rail and cane/crutch with SBA Days to Meet Goals 3 Frequency of Treatment Frequency Of Treatment Twice a Day Treatment Plan Other Recommendations and Next Treatment gait, stairs 6 SE unilat. rail Focus Recommendations To Nursing Amount of Assist Needed 1 Person Assist Discharge Recommendations PT Discharge Recommendations Home with Assistance Outpatient PT
--- NOTE | 2019-03-19 13:45 | PT.IPTN ---
Current Diagnoses Unilateral primary osteoarthritis, right knee (03/16/19) Surgery Performed Operation Date: 02/09/19 07:45 <No data on this case meets the specified criteria> Operation Date: 03/16/19 13:00 Actual Procedures p Total Knee Arthroplasty(Right) - Edi Leo MD Physical Therapy Treatment Note M2 PT-IP Current Condition Start: 03/17/19 11:53 Freq: NEEDED Status: Active Protocol: Document 03/17/19 11:41 DLM (Rec: 03/17/19 12:04 DLM [id number]) Physical Therapy Current Condition Current Condition Evaluation Date 03/17/19 Treatment Diagnosis right TKA, impaired gait Onset Date 03/16/19 Weight Bearing Status Weight Bearing Status Weight Bear as Tolerated M3 PT-IP Subjective Start: 03/17/19 11:53 Freq: NEEDED Status: Active Protocol: Document 03/19/19 13:45 RCC (Rec: 03/19/19 15:20 RCC [id number]) Subjective Physical Therapy Visit Type Type Treatment Note Visit Start Time 13:45 Visit Stop Time 14:10 Total Visit Minutes 25 Number of SCALE BALANCER Visits 0 Physical Therapy Visit Comments Patient Comments Pt willing to get up and try stairs. M4 PT-IP Mobility and Gait Start: 03/17/19 11:53 Freq: NEEDED Status: Active Protocol: Document 03/19/19 13:45 RCC (Rec: 03/19/19 15:20 RCC [id number]) PT-Bed Mobility Assessment Supine to Sit Supine to Sit Independent Sit to Supine Sit to Supine Independent Scooting Scooting to Edge of Bed Standby Assistance PT-Transfer Assessment Sit to and From Stand Sit to and from Stand Standby Assistance Equipment Transfer Assistive Device Gait Belt Front Wheeled Walker Transfers Transfer Destination Bed Transfer Technique Stand Step Pivot Transfer Ability Level of Assist Standby Assistance Gait Assessment Gait Gait Assistance Required: Standby Assistance Distance (Feet) 100 Assistive Devices Assistive Device Gait Belt Front Wheeled Walker Gait Deviations General Gait Pattern Antalgic Decreased Stride Length Decreased Feet Clearance Flexed Trunk Step-to Gait Factors Limiting Gait Function Factors Limiting Gait Function Decreased Activity Tolerance Decreased Strength Limited Range of Motion Pain Poor Balance Stair Climbing Assessment Evaluation Level of Assist On Stairs Contact Guard Assistance Devices Stair Climbing Assistive Devices Straight Cane Left Railing Technique/Endurance Stair Climbing Direction Ascend and Descend Stair Climbing Technique Step to Step Number of Steps Climbed 3 Query Text: Stair Climbing Set # Repetitions (reps) 1 Comments Stair Climbing Comments VC for proper sequencing. M5 PT-IP Objective Assessments Start: 03/17/19 11:53 Freq: NEEDED Status: Active Protocol: Document 03/17/19 11:41 DLM (Rec: 03/17/19 13:09 DLM [id number]) Orientation Orientation/Cognition Level of Alertness Alert Orientation Name Age Birthday Month Date Year Day of Week Place Situation Language Function Ability No Deficits Noted Safety Awareness Understands Safety Issues Memory Description No Deficits Noted Gross Range of Motion Upper Extremity ROM Assessment Within Functional Limits Lower Extremity ROM Assessment Right Impaired Impairments knee ext -lacking 20 degrees in supine, tolerating minimal knee flexion due to pain Strength Upper Extremity Strength Assessment Within Functional Limits Lower Extremity Strength Assessment Right Impaired Hip able to do low straight leg raise with increase pain Knee knee flex/ext 2+/5 with pain limiting Ankle active movement without difficulty 5/5 Coordination Assessment Gross Coordination Gross Coordination WNL Sensation Assessment Sensation Gross Sensation Right LE Impaired Left LE Impaired Sensation Description Numbness Comments Sensation Comments baseline numbness laterally bilateral hip/thighs since back surgery, maria elena wrap on knee , hypesensative to touch right knee today Muscle Tone Muscle Tone WNL Yes M6 PT-IP Treatment Start: 03/17/19 11:53 Freq: NEEDED Status: Active Protocol: Document 03/19/19 13:45 [facility] (Rec: 03/19/19 15:20 [facility] [id number]) Physical Therapy Treatment Exercises Exercises Ankle Pumps Quad Sets Education Education Provided Safety M7 PT-IP Assessment and Plan Start: 03/17/19 11:53 Freq: NEEDED Status: Active Protocol: Document 03/19/19 13:45 [facility] (Rec: 03/19/19 15:20 [facility] [id number]) PT Summary Assessment and Plan Summary Assessment Summary Pt able to progress his gait distance, and managed stairs with CGA this session using a SPC and a railing. Expect pt to be able to d/c home when medically stable, likely tomorrow if pain well controlled. Pt may benefit from physical therapy due to his limitations and high pain, he may not tolerable being able to walk longer distances to attend physical therapy as an outpatient. Goals Bed Mobility Goal Independent Transfer Goal Independent Front Wheeled Walker Gait Goal Independent Front Wheel Walker Gait Distance 100 feet Other Goals Up and down 6 steps with rail and cane/crutch with SBA Days to Meet Goals 3 Frequency of Treatment Frequency Of Treatment Twice a Day Treatment Plan Other Recommendations and Next Treatment gait, stairs 6 SE unilat. rail Focus Recommendations To Nursing Amount of Assist Needed 1 Person Assist Discharge Recommendations PT Discharge Recommendations Home with Assistance Home Health
--- NOTE | 2019-03-19 14:16 | CM.DPC ---
DCP/continued: Received verbal referral from Ortho/PA Simin requesting that CM team coordinate d/c planning for tomorrow 03-20-19. Spoke with therapy and current recommendation is home with assist. Home health also recommended and ordered by PA. Met with patient and spouse/Danielle at bedside. Both aware and agreeable to discharge tomorrow. Patient agreeable to HH and has no preference in agencies. Therefore, referral given to [facility]. Orders obtained and faxed to [place]. Patient reports that he has his spouse to assist and family expected to be coming into town within the next few day. Patient requesting FWW for home use. Order obtained and therapy notified. P: Home with [facility] when stable. Will request CAR LOADER provide patient with [facility] brochure prior to d/c and notify [facility] of d/c date. CARLA Gaston
[2019-03-19 14:48] VITALS: TEMP 37.4
[2019-03-19 15:51] VITALS: BP 117/66; PULSE 86; RESP 16; TEMP 37.6; O2SAT 92
[2019-03-19] MEDS: BISACODYL 5 MG TABLET 10 MG PO (15:54)
[2019-03-19 20:14] VITALS: BP 122/66; PULSE 86; RESP 17; TEMP 36.8; O2SAT 94
--- NOTE | 2019-03-19 21:30 | PC.NURSE ---
Patient is a&o x3 groggy and sleepy. This nurse enters room to answer call light and to proceed with 2100 meds. Patient was found to have a saturated Aquacel drg. towards the base of drg. and a steady stream of blood pooring out of drg. with a large saturated spot on pillow that was elevating affected ext. Patient reports I have a hematoma. Pressure was applied for 7 min and then released but blood flow was still present from base and top of surgica incision. This nurse placed a compression drg. on bleeding portions of the incision, stepped out and called the oncall provider. Per Dr. Dial orders this said bleeding is a result of a hematoma and not an active bleed. Orders for a compression drg. with 2 ABD pads, kurlex, and a maria elena bandage is to be applied firmly to incision and allow the hematoma to bleed. This nurse is choosing to hold Asprin dose for this evening.
[2019-03-19] MEDS: ATORVASTATIN 20 MG TABLET PO (21:53)
[2019-03-19] MEDS: TRAZODONE 100 MG TABLET PO (21:54)
[2019-03-19 23:00] VITALS: BP 129/70; PULSE 89; RESP 16; TEMP 37.6; O2SAT 95
[2019-03-20] MEDS: OXYCODONE IR 10 MG TABLET 20 MG PO ×2 (00:52→08:39)
[2019-03-20] MEDS: hydrOXYzine pamoate 25 MG CAPSULE 50 MG PO ×4 (00:53→12:25)
[2019-03-20 04:32] VITALS: BP 137/76; PULSE 87; RESP 16; TEMP 37; O2SAT 93
[2019-03-20] MEDS: HYDROMORPHONE 2 MG TABLET 4 MG PO ×3 (06:01→12:25)
--- NOTE | 2019-03-20 06:03 | PC.NURSE ---
Assumed care of pt at 2300 on 03/19/19. Pt awake resting in bed during bedside hand-off. Drsg to R. knee with mod drainage soaked through to maria elena wrap. Drsg changed by this medical underwriter at 0030. gauze, abd pads, kerlix and maria elena wrap applied with pressure. Ice packs to knee. No further drainage noted at 0600. CMS+. Denies numbness, able to wiggle toes. PPP. voiding small amt of dark urine; enc po fluid intake throughout shift. Medicating with po analgesics per dec. Bed alarm on. rooming in. Calling appropriately for needs.
[2019-03-20 08:23] VITALS: BP 143/68; PULSE 98; RESP 18; TEMP 37.8; O2SAT 96
[2019-03-20] MEDS: MELOXICAM 7.5 MG TABLET 15 MG PO (08:39)
[2019-03-20] MEDS: ACETAMINOPHEN 325 MG TABLET 975 MG PO (08:39)
[2019-03-20 08:40] VITALS: BP 143/68
[2019-03-20] MEDS: DOXAZOSIN 4 MG TABLET 8 MG PO (08:40)
[2019-03-20] MEDS: ASPIRIN EC 81 MG TABLET PO (08:40)
[2019-03-20] MEDS: AMLODIPINE 5 MG TABLET PO (08:40)
[2019-03-20 08:41] VITALS: BP 143/68
[2019-03-20] MEDS: FINASTERIDE 5 MG TABLET PO (08:41)
[2019-03-20] MEDS: MORPHINE ER 30 MG TABLET PO (08:41)
[2019-03-20] MEDS: METOPROLOL ER 50 MG TABLET 100 MG PO (08:41)
[2019-03-20] MEDS: SENNOSIDES 8.6 MG TABLET 17.2 MG PO (08:42)
[2019-03-20] MEDS: DOCUSATE 100 MG CAPSULE PO (08:51)
[2019-03-20] MEDS: BISACODYL 5 MG TABLET 10 MG PO (08:52)
--- NOTE | 2019-03-20 10:31 | PT.IPTN ---
Current Diagnoses Unilateral primary osteoarthritis, right knee (03/16/19) Surgery Performed Operation Date: 02/09/19 07:45 <No data on this case meets the specified criteria> Operation Date: 03/16/19 13:00 Actual Procedures p Total Knee Arthroplasty(Right) - Edi Leo MD Physical Therapy Treatment Note M2 PT-IP Current Condition Start: 03/17/19 11:53 Freq: NEEDED Status: Active Protocol: Document 03/17/19 11:41 DLM (Rec: 03/17/19 12:04 DLM [id number]) Physical Therapy Current Condition Current Condition Evaluation Date 03/17/19 Treatment Diagnosis right TKA, impaired gait Onset Date 03/16/19 Weight Bearing Status Weight Bearing Status Weight Bear as Tolerated M3 PT-IP Subjective Start: 03/17/19 11:53 Freq: NEEDED Status: Active Protocol: Document 03/20/19 10:31 RCC (Rec: 03/20/19 11:04 RCC [email or web address]) Subjective Physical Therapy Visit Type Type Treatment Note Visit Start Time 10:31 Visit Stop Time 10:55 Total Visit Minutes 24 Number of FRONT SERVICES AGENT Visits 0 Physical Therapy Visit Comments Patient Comments pt reports he had a rough night, more bleed at incision site which the dressing had to be changed. Therapy Pain Assessment Pain When Pain Assessed During Mobility Pain Present Pain Present Pain Reported Location Right Knee Intensity 10 Scale Used Numeric (1 - 10) M4 PT-IP Mobility and Gait Start: 03/17/19 11:53 Freq: NEEDED Status: Active Protocol: Document 03/20/19 10:31 RCC (Rec: 03/20/19 11:04 RCC [id number]) PT-Bed Mobility Assessment Supine to Sit Supine to Sit Independent Sit to Supine Sit to Supine Independent Scooting Scooting to Edge of Bed Standby Assistance PT-Transfer Assessment Sit to and From Stand Sit to and from Stand Independent Use of Upper Extremities Equipment Transfer Assistive Device Gait Belt Front Wheeled Walker Transfers Transfer Destination Bed Transfer Technique Stand Step Pivot Transfer Ability Level of Assist Standby Assistance Gait Assessment Gait Gait Assistance Required: Standby Assistance Distance (Feet) 100 Assistive Devices Assistive Device Gait Belt Front Wheeled Walker Gait Deviations General Gait Pattern Antalgic Decreased Stride Length Decreased Feet Clearance Factors Limiting Gait Function Factors Limiting Gait Function Decreased Activity Tolerance Decreased Strength Limited Range of Motion Pain Poor Balance Comments Gait Comments able to achieve heel first with VC Stair Climbing Assessment Evaluation Level of Assist On Stairs Contact Guard Assistance Devices Stair Climbing Assistive Devices Straight Cane Left Railing Technique/Endurance Stair Climbing Direction Ascend and Descend Stair Climbing Technique Step to Step Number of Steps Climbed 3 Query Text: Stair Climbing Set # Repetitions (reps) 2 Comments Stair Climbing Comments significant other assisted with stairs with PT VC M5 PT-IP Objective Assessments Start: 03/17/19 11:53 Freq: NEEDED Status: Active Protocol: Document 03/17/19 11:41 DLM (Rec: 03/17/19 13:09 DL [id number]) Orientation Orientation/Cognition Level of Alertness Alert Orientation Name Age Birthday Month Date Year Day of Week Place Situation Language Function Ability No Deficits Noted Safety Awareness Understands Safety Issues Memory Description No Deficits Noted Gross Range of Motion Upper Extremity ROM Assessment Within Functional Limits Lower Extremity ROM Assessment Right Impaired Impairments knee ext -lacking 20 degrees in supine, tolerating minimal knee flexion due to pain Strength Upper Extremity Strength Assessment Within Functional Limits Lower Extremity Strength Assessment Right Impaired Hip able to do low straight leg raise with increase pain Knee knee flex/ext 2+/5 with pain limiting Ankle active movement without difficulty 5/5 Coordination Assessment Gross Coordination Gross Coordination WNL Sensation Assessment Sensation Gross Sensation Right LE Impaired Left LE Impaired Sensation Description Numbness Comments Sensation Comments baseline numbness laterally bilateral hip/thighs since back surgery, maria elena wrap on knee , hypesensative to touch right knee today Muscle Tone Muscle Tone WNL Yes M6 PT-IP Treatment Start: 03/17/19 11:53 Freq: NEEDED Status: Active Protocol: Document 03/20/19 10:31 [facility] (Rec: 03/20/19 11:04 [facility] [id number]) Physical Therapy Treatment Exercises Exercises Seated Knee Flexion/Extension Education Education Provided Safety M7 PT-IP Assessment and Plan Start: 03/17/19 11:53 Freq: NEEDED Status: Active Protocol: Document 03/20/19 10:31 RCC (Rec: 03/20/19 11:04 [facility] [id number]) PT Summary Assessment and Plan Summary Progress Towards Goals Safe For Discharge Assessment Summary POD #4 R TKA. Pt able to do 6 steps with significant other assisting, proper sequencing with significant other VC. Pt ROM is limited in R knee 5-80 degrees limited by pain. Pt is a good candidate for home health therapy. Pt is cleared to d/c home when he is medically stable. He will need a FWW for home use prior to d /c. Goals Bed Mobility Goal Independent Transfer Goal Independent Front Wheeled Walker Gait Goal Independent Front Wheel Walker Gait Distance 100 feet Other Goals Up and down 6 steps with rail and cane/crutch with SBA Days to Meet Goals 3 Frequency of Treatment Frequency Of Treatment Twice a Day Recommendations To Nursing Amount of Assist Needed 1 Person Assist Discharge Recommendations PT Discharge Recommendations Home with Assistance Home Health Equipment Needed for Home Before FWW- needs prescription Discharge
--- NOTE | 2019-03-20 11:19 | CM.DPNOTE ---
Addendum entered by CARLA Chowdhury 03/20/19 15:19: DC home w/spouse today, faxed DC summary to [facility]. JW Original Note: Reviewed chart. Pt discussed in multidisciplinary rounds. Pt has been cleared by PT for return home w/spouse and HH. Ortho surgeon not in building upon this QUARANTINE INSPECTOR's pt visit although medical clearance/DC is expected today. Met w/pt and his spouse, reviewed IMM, signed by pt. Then reviewed DCP. Pt/spouse agreeable w/potential DC today and agreeable to [facility] . Provided [facility] brochure and updated pt/spouse PT/OT was ordered. No additional questions or concerns for this QUARANTINE INSPECTOR to address. P: DC home is expected today, w/ spouse to assist and [facility] PT/OT to f/u. Spouse to transport home. [facility] will need DC summary faxed when available. CARLA Chowdhury
--- NOTE | 2019-03-20 11:45 | PC.NURSE ---
Pt states he is ready for discharge home with Spouse. He will be receiving Home Health. FWW ordered for Pt and distributed to Pt . Lynette gutierrez replaced by Dr. Todd. Discussed d/c meds, time of last dose. Will give final dose of Dilaudid prior to discharge to manage pain during transfer. No IV. Pt encouraged to work to decrease pain meds as able to prevent constipation and drink plenty of fluids. Will review stroke education, s/s of infection, and follow up. Pt also encouraged to use ice packs 20 minutes on and then off to reduce swelling and inflammation. Pt had no further questions.
--- NOTE | 2019-03-20 12:16 | PM.DS.1 ---
History of Present Illness Chief complaint: Total Knee Arthroplasty [id number] Discharge Providers Date of admission: 03/16/19 10:49 Discharge Date: 03/20/19 Primary care physician: Shannan Cruz MD Consults: 03/16/19 18:30 Consult to Discharge Planning Routine Comment: Consult to Physical Therapy Evaluate & Treat Comment: Physician Instructions: postop TKA protocol Consult to Respiratory Therapy Evaluate & Treat Comment: Physician Instructions: Evaluate and treat 03/19/19 13:43 Consult to Home Health Routine Comment: right TKA performed on 03-16-19 Reason For Exam: Home health for PT/OT per recommended by therapy 03/19/19 13:53 Consult to Home Health Routine Comment: Patient under went Right TKA on 03-16-19 Reason For Exam: Please arrange FWW for home use. Discharge provider: Chrissy Todd MD Summary Hospital Course: Patient was admitted to the hospital. He underwent a routine right total knee arthroplasty. He had a small amount of bleeding postoperatively and required a dressing change. He had substantial problems with pain control postoperatively. It was noted that he was clari narcotics preoperatively primarily due to chronic low back pain with history of multiple surgeries. He was mobilized with physical therapy and fairly extensive nursing support. He was able to ambulate out of his room and on the toney after multiple days of physical therapy. Exam Vital Signs (past 8 hours): - 03/20/19 04:32 03/20/19 08:23 03/20/19 08:40 Temperature 98.6 F 100.0 F H Pulse Rate 87 98 H Respiratory Rate 16 18 Blood Pressure 137/76 143/68 H 143/68 H Pulse Oximetry 93 96 03/20/19 08:41 Temperature Pulse Rate Respiratory Rate Blood Pressure 143/68 H Pulse Oximetry Oxygen Delivery Method Room Air Oxygen Flow Rate 0 Narrative Exam Narrative: His wound was dry at the time of discharge, his calfs were soft bilaterally, he was alert oriented appropriate and able to do a straight leg raise. Objective Labs Result Diagrams: 03/18/19 07:07 Discharge Plan Discharge Plan Patient Disposition: Home Discharge Med Rec/Prescriptions Prescriptions: New hydromorphone 2 mg Tablet 4 mg PO Q3H PRN (Reason: Pain, Severe (7-10)) Qty: 42 RF: 0 Continued finasteride 5 mg tablet 5 mg PO DAILY RF: 0 oxycodone 10 mg tablet 10 mg PO Q4-6H PRN (Reason: pain) RF: 0 morphine 30 mg capsule, ER multiphase 24 hr 15 mg PO DAILY PRN (Reason: pain) RF: 0 metoprolol succinate 100 mg cap,sprinkle,ER 24hr dose pack 100 mg PO DAILY Qty: 90 RF: 0 Disabled parking Permit Qty: 1 RF: 0 trazodone 100 mg tablet 100 mg PO BEDTIME Qty: 90 RF: 3 hydroxyzine pamoate [Vistaril] 25 mg capsule 25 mg PO Q6-8H PRN (Reason: anxiety) Qty: 30 RF: 0 doxazosin 8 mg tablet 8 mg PO DAILY Qty: 90 RF: 0 amlodipine 5 mg tablet 5 mg PO DAILY Qty: 90 RF: 0 atorvastatin 20 mg tablet 20 mg PO BEDTIME RF: 0 testosterone cypionate [Depo-Testosterone] 200 mg/mL oil 200 mg IM Q2W RF: 0 aspirin 81 mg Tablet,Delayed Release (Dr/Ec) 81 mg PO DAILY RF: 0 Follow up/Referrals: Shannan Cruz MD [Primary Care Provider] - Provider Discharge Instructions Diet: Diet as Tolerated Activity: weight bearing as tolerated Cold/Heat Therapy: ice multiple times a day Skin/Wound/Dressing Care Skin care: ok to shower Report to your healthcare provider any signs of infection, such as:: chills, fever, night sweats, increased pain, unusual drainage and unusual redness Dressing: keep dressing on Visit Report/Discharge Packet Instructions: Hydromorphone Visit Report Forms: Stroke Signs & Symptoms Discharge Data Primary Care Provider: Shannan Cruz Attending Provider: Edi Leo Admrandy Date/Time: 03/16/19 10:49 Quality VTE Deep Vein Thrombosis/Pulmonary Embolism Present on Admission: No
--- NOTE | 2019-03-20 12:55 | PC.NURSE ---
Pt out via w/c by [employer] ARCHITECT with Spouse and all belongings.
== END 2019-03-20 12:55 | disposition home health service (06) | DRG 470 ==
LOC: AC 03-20 12:10 → OR 03-21 08:00 → AC 03-21 08:01
PROVIDERS: Physician Assistant Surgical; Admitting Provider Orthopaedic Surgery; PCP Hospitalist; Visit Provider Orthopaedic Surgery
PROC: 0SRC0JZ Replacement of Right Knee Joint with Synthetic Substitute, Open Approach (ICD-10-PCS; CPT 27447; principal; 2019-03-16 13:00)
DX: M17.11 Unilateral primary osteoarthritis, right knee (principal); Z96.652 Presence of left artificial knee joint; G47.33 Obstructive sleep apnea (adult) (pediatric); I10 Essential (primary) hypertension; F32.9 Major depressive disorder, single episode, unspecified; Z87.891 Personal history of nicotine dependence; G89.4 Chronic pain syndrome; I51.7 Cardiomegaly; R50.9 Fever, unspecified; M62.838 Other muscle spasm
CPT/HCPCS: 36415; 73560; 85014; 85018; 94762; 97110; 97116; 97162; 97530; C1776; C9290; J0690; J1100; J1170; J2060; J2250; J2405; J2704; J3010; J3410